=== PATIENT | female | born 1995 | race Caucasian/White ===

== ENCOUNTER 2017-05-27 20:15 | Emergency (ER) | payer MEDICAID ==
[2017-05-27] MEDS ORDERED: Sulfamethoxazole/Trimethoprim 800-160 MG Tab PO STA (20:39)
--- NOTE | 2017-05-27 20:43 | EDM.PDOC ---
ED HPI GENERAL MEDICAL PROBLEM - General Stated Complaint: VOMITTING Time Seen by Provider: 05/27/17 20:23 Source of Information: Reports: Patient, Family History Limitations: Reports: No Limitations - History of Present Illness INITIAL COMMENTS - FREE TEXT/NARRATIVE: 21 y. o w f came to the ed due to epigastic pain an d N/V. pt was seen somewhere else and received Zofran. Pt took Zofran PT and her N/V subsided. However, she still has epigastric pain. Denies . No Dizziness or leight headedness or any other acute medical issues. Onset: Unknown/Unsure Onset Date: 05/27/17 Onset Time: 08:00 Duration: Hour(s): Location: Reports: Abdomen Quality: Reports: Burning Improves with: Reports: None Worsens with: Reports: None Associated Symptoms: Reports: No Other Symptoms ABDOMEN Pain Score (Numeric/FACES): 6 - Related Data Allergies Allergy/AdvReac Type Severity Reaction Status Date / Time Penicillins Allergy Difficulty Verified 05/27/17 20:31 Breathing Home Meds: Home Meds NK [No Known Home Meds] 05/27/17 [History] Review of Systems - Review of Systems Review Of Systems: See Below Constitutional: Reports: No Symptoms Eyes: Reports: No Symptoms Ears: Reports: No Symptoms Nose: Reports: No Symptoms Mouth/Throat: Reports: No Symptoms Respiratory: Reports: No Symptoms Cardiovascular: Reports: No Symptoms GI/Abdominal: Reports: Abdominal Pain (epigastric) Genitourinary: Reports: No Symptoms Musculoskeletal: Reports: No Symptoms Skin: Reports: No Symptoms Neurological: Reports: No Symptoms Psychiatric: Reports: No Symptoms ED EXAM, GENERAL - Physical Exam Exam: See Below Exam Limited By: No Limitations General Appearance: Alert, WD/WN, No Apparent Distress Eye Exam: Bilateral Eye: Normal Inspection Ears: Normal External Exam, Normal Canal Ear Exam: Bilateral Ear: Auricle Normal Nose: Normal Inspection, Normal Mucosa Throat/Mouth: Normal Inspection, Normal Lips Head: Atraumatic, Normocephalic Neck: Normal Inspection, Supple, Non-Tender Respiratory/Chest: No Respiratory Distress, Lungs Clear, Normal Breath Sounds Cardiovascular: Normal Peripheral Pulses, Regular Rate, Rhythm, No Edema GI/Abdominal: Tender (epigastric) (Female) Exam: Deferred Rectal (Female) Exam: Deferred Back Exam: Normal Inspection Extremities: Normal Inspection, Normal Range of Motion, Non-Tender, No Pedal Edema Neurological: Alert, Oriented, CN II-XII Intact, Normal Cognition, Normal Gait Psychiatric: Normal Affect, Normal Mood Skin Exam: Warm, Dry, Intact, Normal Color, No Rash Lymphatic: No Adenopathy Course - Vital Signs Text/Narrative:: 21 y. o w f came to the ed due to epigastic pain an d N/V. pt was seen somewhere else and received Zofran. Pt took Zofran PT and her N/V subsided. However, she still has epigastric pain. Denies . No Dizziness or leight headedness or any other acute medical issues. PE: epigastric pain Labs: UA neg HCG neg Impression: Gastritis, DDX: GBD Tx: Maalox Reexam: Symptoms improved, D/C with instructions. Pt was able to eat and drink Last Recorded V/S: Last Vital Signs Temp 36.1 C 05/27/17 20:23 Pulse 106 H 05/27/17 20:23 Resp 16 05/27/17 20:23 BP 104/65 05/27/17 20:23 Pulse Ox 100 05/27/17 20:23 - Orders/Labs/Meds Labs: Laboratory Tests 05/27/17 05/27/17 Range/Units 21:35 21:35 Urine Color Yellow (YELLOW) Urine Appearance Clear (CLEAR) Urine pH 6.0 (5.0-6.5) Ur Specific [place] 1.020 (1.010-1.025) Urine Protein Negative (NEGATIVE) mg/dL Urine Glucose (UA) Normal (NEGATIVE) mg/dL Urine Ketones Negative (NEGATIVE) mg/dL Urine Occult Blood Negative (NEGATIVE) Urine Nitrite Negative (NEGATIVE) Urine Bilirubin Small H (NEGATIVE) Urine Urobilinogen Normal (NEGATIVE) mg/dL Ur Leukocyte Esterase Negative (NEGATIVE) Urine RBC 0-5 (0) Urine WBC 0-5 (0) Ur Squamous Epith Cells Moderate H (NS,R,O) Urine Bacteria Few H (NS) Urine Mucus Moderate H (NS) Urine HCG, Qual Negative (NEGATIVE) Meds: Medications Discontinued Medications Generic Name Dose Route Start Last Admin Trade Name Freq PRN Reason Stop Dose Admin Al Hydroxide/Mg Hydroxide 30 ml 05/27/17 22:24 05/27/17 22:33 Mag-Al Susp PO 05/27/17 22:25 30 ml ONETIME STA Administration Ondansetron HCl 8 mg 05/27/17 20:56 05/27/17 21:04 Zofran Odt PO 05/27/17 20:57 Not Given ONETIME ONE Trimethoprim/Sulfamethoxazole 1 tab 05/27/17 20:39 05/27/17 22:30 Septra Ds PO 05/27/17 20:40 Not Given ONETIME STA Departure - Departure Time of Disposition: 22:23 Disposition: Home, Self-Care 01 Condition: Good Clinical Impression: Gastritis Qualifiers: Gastritis type: unspecified gastritis Chronicity: acute Gastritis bleeding: without bleeding Qualified Code(s): K29.00 - Acute gastritis without bleeding - Discharge Information Instructions: Gastritis, Adult, [id number] Referrals: PCP,None [Primary Care Provider] - Forms: ED Department Discharge Additional Instructions: please quit tobacco use, please take Zofran for nausea, please take maalox for gastritis, please f/u with your Primary MD, come back if worse.
[2017-05-27] MEDS ORDERED: Ondansetron 8 MG Tab.DIS PO ONE (20:56)
[2017-05-27] MEDS ORDERED: Aluminum Hydroxide/Magnesium Hydroxide Susp 30 ML Cup PO STA (22:24)
[2017-05-27 23:17] VITALS: BP 106/56
== END 2017-05-27 22:40 | disposition home or self-care (01) ==
LOC: FB.ED 20:15
DX: K29.00 Acute gastritis without bleeding (principal); Z88.0 Allergy status to penicillin
CPT/HCPCS: 81001; 81025; 99284; A9270

== ENCOUNTER 2017-06-04 20:11 | Emergency (ER) | payer MEDICAID ==
[2017-06-04] MEDS ORDERED: Ketorolac 60 MG/2 ML SDV IM ONE (20:23)
[2017-06-04] MEDS ORDERED: FLU Vacc QS 2017-18 (36mos UP)/PF 60 MCG/0.5 ML Syringe IM ONE (20:29)
--- NOTE | 2017-06-04 20:39 | EDM.PDOC ---
ED HPI GENERAL MEDICAL PROBLEM - General Chief Complaint: Headache Stated Complaint: MIGRAINE Time Seen by Provider: 06/04/17 20:11 Source of Information: Reports: Patient History Limitations: Reports: No Limitations - History of Present Illness INITIAL COMMENTS - FREE TEXT/NARRATIVE: 21 y.o.w.f came to the ed because of r sided lat neck pain radiating to he r daksha, No N/V/D or dizziness no photophobia. Pt had similar symptoms in the past, Toradol helped her. Pt denies , no other acute medical issues. Onset: Today Onset Date: 06/03/17 Onset Time: 08:00 Duration: Hour(s):, Intermittent Location: Reports: Head, Neck Quality: Reports: Ache, Same as Previous Episode Improves with: Reports: Medication Worsens with: Reports: Rest Context: Reports: Sick Contact Associated Symptoms: Reports: No Other Symptoms - Related Data Allergies Allergy/AdvReac Type Severity Reaction Status Date / Time amoxicillin Allergy Cannot Verified 06/04/17 20:23 Remember bee venom protein (honey bee) Allergy Airway Verified 06/04/17 20:23 Tightness Penicillins Allergy Difficulty Verified 05/27/17 20:31 Breathing shellfish derived Allergy Cannot Verified 06/04/17 20:23 Remember Home Meds: Home Meds NK [No Known Home Meds] 05/27/17 [History] Past Medical History [employer] History: Reports: Other (See Below) Other OB/BYN History: Social & Family History - Tobacco Use Smoking Status *Q: Current Some Day Smoker Years of Tobacco use: 2 Packs/Tins Daily: 0 - Alcohol Use Days Per Week of Alcohol Use: 1 Number of Drinks Per Day: 1 Total Drinks Per Week: 1 - Recreational Drug Use Recreational Drug Use: No ED ROS GENERAL - Review of Systems Review Of Systems: See Below Constitutional: Reports: No Symptoms HEENT: Reports: No Symptoms, Other (h/a and neck pain) Respiratory: Reports: No Symptoms Cardiovascular: Reports: No Symptoms Endocrine: Reports: No Symptoms GI/Abdominal: Reports: No Symptoms : Reports: No Symptoms Musculoskeletal: Reports: No Symptoms Skin: Reports: No Symptoms Neurological: Reports: Headache Psychiatric: Reports: No Symptoms Hematologic/Lymphatic: Reports: No Symptoms Immunologic: Reports: No Symptoms - Physical Exam Exam: See Below Exam Limited By: No Limitations General Appearance: Alert, WD/WN, Mild Distress Eye Exam: Bilateral Eye: Normal Inspection Ears: Normal External Exam Nose: Normal Inspection Throat/Mouth: Normal Inspection, Normal Lips, Normal Teeth Head Exam: Atraumatic, Normocephalic Neck: Normal Inspection, Supple, Full Range of Motion, Tender Lateral Respiratory/Chest: No Respiratory Distress, Lungs Clear, Normal Breath Sounds, No Accessory Muscle Use Cardiovascular: Normal Peripheral Pulses, Regular Rate, Rhythm, No Edema GI/Abdominal: Normal Bowel Sounds, Soft, Non-Tender, No Organomegaly (Female) Exam: Deferred Rectal (Female) Exam: Deferred Neuro Exam (Abbreviated): Alert, Oriented, CN II-XII Intact, Normal Cognition Back Exam: Normal Inspection, Full Range of Motion Extremities: Normal Inspection, Normal Range of Motion Psychiatric: Normal Affect, Normal Mood Skin Exam: Warm, Dry, Intact, Normal Color, No Rash Course - Vital Signs Text/Narrative:: 21 y.o.w.f came to the ed because of r sided lat neck pain radiating to he r daksha, No N/V/D or dizziness no photophobia. Pt had similar symptoms in the past, Toradol helped her. Pt denies , no other acute medical issues. No F/C PE: R sided lat neck pain, headache Impression: Tension headache Tx: Toradol Reexam: Improved 80% Plan: D/c with instructions. - Orders/Labs/Meds Meds: Medications Discontinued Medications Generic Name Dose Route Start Last Admin Trade Name Duncanq PRN Reason Stop Dose Admin Ketorolac Tromethamine 60 mg 06/04/17 20:23 06/04/17 20:39 Toradol IM 06/04/17 20:24 60 mg ONETIME ONE Administration Departure - Departure Time of Disposition: 20:39 Disposition: Home, Self-Care 01 Condition: Good Clinical Impression: Tension headache - Discharge Information Instructions: Recurrent Migraine Headache, [id number], VIS, Inactivated or Recombinant Influenza - CDC Referrals: PCP,None [Primary Care Provider] - Forms: ED Department Discharge Additional Instructions: Follow up with your primary care provider regarding recurrent migraine headaches for possible medication suggestions to treat these at home.
== END 2017-06-04 21:10 | disposition home or self-care (01) ==
LOC: FB.ED 20:11
DX: G44.209 Tension-type headache, unspecified, not intractable (principal); F17.210 Nicotine dependence, cigarettes, uncomplicated; Z88.1 Allergy status to other antibiotic agents; Z88.0 Allergy status to penicillin; Z91.013 Allergy to seafood; Z91.030 Bee allergy status
CPT/HCPCS: 96372; 99282; J1885; 90686